=== PATIENT | male | born 1990 | race Caucasian/White ===

== ENCOUNTER 2024-09-27 16:14 | Emergency (ER) | payer MEDICAID, SELFPAY ==
[2024-09-27 16:18] VITALS: BMI 52.2
[2024-09-27 16:59] VITALS: BP 150/86; PULSE 99; RESP 20; TEMP 37; O2SAT 99
--- NOTE | 2024-09-27 17:06 | EKG_ITS ---
[facility] Test Date: 2024-09-27 Pat Name: BYRON ANDRE Department: Room: - Gender: Male Sports Manager: : 1990 Requested By: Gildardo Navas (NELY) Order Number: [id number] Reading MD: Gildardo Navas (MONONITROTOLUENE OPERATOR) Measurements Intervals [place] Rate: 95 P: 47 [place]: 132 QRS: 39 QRSD: 93 T: 23 QT: 352 QTc: 443 Interpretive Statements SINUS RHYTHM WITH MARKED SINUS ARRHYTHMIA No previous ECG available for comparison /store/S0/[id number]
--- NOTE | 2024-09-27 17:06 | XR_ITS ---
Examination: AP chest single view TECHNIQUE: AP portable chest single view Examination type: September 27, 2024 1718 hours Comparison August 27, 2019 INDICATIONS: Chest pain 1 week with difficulty breathing FINDINGS: Mild prominence of ventricle Mild vascular congestion. No lobar pneumonia or pulmonary edema IMPRESSION: Mild vascular congestion
--- NOTE | 2024-09-27 17:06 | PD.EDRME ---
Rapid Medical Screening Exam RME Arrival date/time: 09/27/24 16:14 34-year-old male presents to the emergency department today for complaints of shortness of breath and generalized back pain and fatigue Chief Complaint: Shortness of Breath/Dyspnea Time Seen by Provider: 09/27/24 20:28 Vital signs: Vital Signs Temperature 98.6 F 09/27/24 16:59 Pulse Rate 99 09/27/24 16:59 Respiratory Rate 20 09/27/24 16:59 Blood Pressure 150/86 H 09/27/24 16:59 Pulse Oximetry (%) 99 09/27/24 16:59 Oxygen Delivery Method Room Air 09/27/24 16:59
[2024-09-27 17:50] LABS: Basophils # (Auto) 0.1 Thou/mm3 (0.0-0.2); Basophils % (Auto) 1 % (0-2.5); Eosinophils # (Auto) 0.3 Thou/mm3 (0.0-0.5); Eosinophils % (Auto) 4 % (0-10); Hematocrit 44.8 % (41.0-53.0); Hemoglobin 14.7 g/dL (13.5-16.0); Immature Granulocytes % (Auto) 0 % (0-0); Immature Granulocytes Auto 0.01 Thou/mm3 (0.00-0.00); Lymphocytes # (Auto) 2.2 Thou/mm3 (1.0-4.8); Lymphocytes % (Auto) 31 % (10-50); Mean Corpuscular HGB Conc 32.8 g/dl (31.0-37.0); Mean Corpuscular Hemoglobin 28.7 pg (25.0-35.0); Mean Corpuscular Volume 88 fL (80-100); Monocytes # (Auto) 0.6 Thou/mm3 (0.0-0.8); Monocytes % (Auto) 8 % (0-12); Neutrophils % (Auto) 56 % (37-80); Nucleated Red Blood Cell % 0 /100 WBC (0); Platelet Count 259 Thou/mm3 (140-440); RDW Standard Deviation 42.9 fL (35.1-43.9); Red Blood Count 5.12 Miln/mm3 (4.50-5.90); White Blood Count 7.1 Thou/mm3 (3.8-10.6)
[2024-09-27 17:55] LABS: Collection Type, Urine Clean Catch
[2024-09-27 18:01] LABS: Partial Thromboplastin Time 24.3 Seconds (22.0-36.0); Prothrombin Time 10.5 Seconds (9.0-12.2)
[2024-09-27 18:01] LABS: Bilirubin,Urine Negative (Negative); Blood,Urine Negative (Negative); Clarity,Urine Clear (Clear/Hazy); Color,Urine Yellow (Lt Yel-Yel); Glucose, Urine Negative (Negative); Ketones,Urine Negative (Negative); Leukocyte Esterase,Urine Negative (Negative); Nitrite,Urine Negative (Negative); Protein,Urine Trace (Neg - Trace); RBC,Urine 2 /hpf (0-3); Specific Gravity,Urine 1.028 (1.001-1.035); Squamous Epithelial Cell,Urine 1 /hpf (0-5); Urobilinogen,Urine Negative mg/dL (0.0-1.0); WBC,Urine 3 /hpf (0-5)
[2024-09-27 18:25] LABS: B-Type Natriuretic Peptide < 20 pg/mL (0-100)
[2024-09-27 18:29] LABS: Alanine Aminotransferase 56 U/L (10-49); Albumin, Serum 4.5 gm/dL (3.5-5.0); Albumin/Globulin Ratio 1.6 (1.2-2.2); Alkaline Phosphatase 78 U/L (46-116); Anion Gap 6 (7-16); Aspartate Amino Transferase 54 U/L (0-34); BUN/Creatinine Ratio 10 Ratio (12-20); Bilirubin,Total 0.5 mg/dL (0.3-1.2); Blood Urea Nitrogen 9 mg/dL (9-23); Calcium 9.3 mg/dL (8.3-10.6); Calcium (Corrected) 9.3 mg/dL (8.5-10.1); Carbon Dioxide 25.9 mMol/L (20.0-31.0); Chloride 110 mMol/L (98-107); Creatinine (Component) 0.9 mg/dL (0.6-1.3); Estimated Creatinine Clearance 188.7 mL/min (>60); Free T4 (Free Thyroxine) 1.06 ng/dL (0.89-1.76); Globulin 2.8 gm/dL (2.3-3.5); Glucose 96 mg/dL (74-106); Osmolality,Calculated 281 (275-295); Potassium 4.1 mMol/L (3.4-5.1); Sodium 142 mMol/L (136-145); Thyroid Stimulating Hormone 1.81 uIU/mL (0.55-4.78); Total Protein 7.3 gm/dL (5.7-8.2); Troponin I < 0.002 ng/mL (0.0-0.045); eGFR > 60 See Note
--- NOTE | 2024-09-27 20:46 | XR_ITS ---
Examination: Lumbar spine 3 views TECHNIQUE: AP lateral, lower lumbar spine 3 views INDICATIONS: Lower back pain beginning one week ago. FINDINGS: Satisfactory alignment lumbar vertebral bodies Normal lumbar fracture Mild lumbar disc narrowing No spondylolisthesis IMPRESSION: No lumbar fracture Mild diffuse lumbar disc narrowing
--- NOTE | 2024-09-27 20:46 | XR_ITS ---
Examination: Cervical spine 3 views TECHNIQUE: AP lateral, and AP odontoid cervical spine 3 views Exam date and time: September 27,, 2024, 2101 hours INDICATIONS: Neck pain 1 week numbness in the hands FINDINGS: Adequate alignment cervical vertebral bodies No cervical fracture. Intact odontoid IMPRESSION: No cervical fracture or significant arthritic change If radicular symptoms persist, consider MRI cervical spine without contrast followed
[2024-09-27] MEDS: KETOROLAC INJ 60 MG/2 ML VIAL 30 MG IM (21:26)
--- NOTE | 2024-09-27 21:39 | PD.EDSOB ---
ED SOB =RME/HPI General Chief Complaint: Shortness of Breath/Dyspnea Stated Complaint: BACK PAIN, SOB, R HAND NUMBNESS X2 DAYS Time Seen by Provider: 09/27/24 20:28 Arrival date/time: 09/27/24 16:14 Mode of arrival: ambulatory Limitations: no limitations RME / HPI RME / HPI Narrative: 09/27/24 16:14 34-year-old male presents to the emergency department today for complaints of shortness of breath and generalized back pain and fatigue MD Complaint: shortness of breath and cough Severity: moderate Consistency/Duration: constant Associated symptoms: other (back pain) Treatment prior to arrival: oxygen Related Data Home oxygen amount: 2 liters Previous Rx's ?Medication ?Instructions ?Recorded ondansetron HCl 4 mg tablet 4 mg PO QID PRN nausea and 12/15/19 (Zofran) vomiting #10 tabs naproxen sodium 550 mg tablet 550 mg PO Q12H PRN pain #30 tabs 09/27/24 Allergies Allergy/AdvReac Type Severity Reaction Status Date / Time No Known Allergies Allergy Verified 08/09/19 21:44 Review of Systems Review of Systems Systems Reviewed: All systems reviewed, normal except as documented Cardiovascular Cardiovascular: Reports system reviewed and no additional complaints, except as documented and Reports dyspnea on exertion Respiratory Respiratory: Reports dyspnea on exertion Musculoskeletal Musculoskeletal: Reports system reviewed and no additional complaints, except as documented, Reports arthralgias and Reports myalgias ED Exam General Limitations: Present no limitations General appearance: Present alert and in no apparent distress Head Head exam: Present atraumatic and normocephalic Eye Eye exam: Present normal appearance and EOMI ENT ENT exam: Present normal exam, normal oropharynx and mucous membranes moist Neck Neck exam: Present normal inspection and full ROM Chest Chest inspection: Present normal inspection Respiratory Respiratory exam: Present normal lung sounds bilaterally and respiratory distress Cardiovascular Cardiovascular exam: Present regular rate and normal rhythm Abdominal Exam Abdominal exam: Present soft Extremities Exam Extremities exam: Present normal inspection and full ROM Back Exam Back exam: Present normal inspection and full ROM Neurological Exam Neurological exam: Present alert and oriented X3 Psychiatric Psychiatric exam: Present normal affect and normal mood Skin Skin exam: Present warm, dry, intact and normal color Course Course Course Narrative: Discharge parents. I reviewed all labs with the patient including the x-rays. Patient had 30 mg prescription. Quality Measures none Orders Category Date Time Status EKG (ED ONLY) *Do not use* NOW Care 09/27/24 17:06 Completed EKG (ED Only) Stat Exams 09/27/24 17:06 Draft XR cervical spine 2-3V Stat Exams 09/27/24 20:46 Completed XR chest 2V Stat Exams 09/27/24 17:06 Completed XR lumbar spine 2-3V Stat Exams 09/27/24 20:46 Completed B-Type Natriuretic Peptide Stat Lab 09/27/24 17:10 Completed CBC Stat Lab 09/27/24 17:10 Completed Comprehensive Metabolic Panel Stat Lab 09/27/24 17:10 Completed Free T4 (Free Thyroxine) Stat Lab 09/27/24 17:10 Completed Magnesium Stat Lab 09/27/24 17:10 Completed Partial Thromboplastin Time Stat Lab 09/27/24 17:10 Completed Prothrombin Time with INR Stat Lab 09/27/24 17:10 Completed TSH [Thyroid Stimulating Hormone] Stat Lab 09/27/24 17:10 Completed Troponin I Stat Lab 09/27/24 17:10 Completed Urinalysis Stat Lab 09/27/24 17:36 Completed Ketorolac Inj [Toradol Inj] Med 09/27/24 20:46 Discontinued 30 mg IM X1 ONE Vital Signs Vital signs: Vital Signs Temperature 98.6 F 09/27/24 16:59 Pulse Rate 99 09/27/24 16:59 Respiratory Rate 20 09/27/24 16:59 Blood Pressure 150/86 H 09/27/24 16:59 Pulse Oximetry (%) 99 09/27/24 16:59 Oxygen Delivery Method Room Air 09/27/24 16:59 Pulse ox room air is 99%. Shortness of Breath / Dyspnea MDM Narrative MDM Narrative:: Patient will be discharged home and he is to continue with the appointment he has with his primary care physician for pain management as well as to review his shortness of breath. Patient will be discharged from distress. Patient data External records reviewed:: Other (specify) Clinical information provided by:: patient Social determinants that could affect healthcare access:: none Patient has the following chronic illnesses:: na How is presenting disease/condition affected by chronic disease/condition?: exacerbated by (Morbidly obese) Evaluation data The following diagnostics were reviewed and interpreted by me:: lab results Lab and/or radiology exams considered but not ordered:: I reviewed the lab results as well as the x-rays to the patient. Interpretation Summary: Arthritic changes consistant with low back pain. Morbidly obese more then likely contributes to patient's SOB. Medications / Prescriptions Medications or Prescriptions considered but not ordered:: na Medication administrations:: Medication Administration History Discontinued Medications Ketorolac Tromethamine (Ketorolac Inj 60 Mg/2 Ml Vial) 30 mg IM X1 ONE Stop: 09/27/24 20:47 Last Admin: 09/27/24 21:26 Dose: 30 mg Documented By: ASHVIN For pain management Consultations Consultation(s) initiated? (list below): No Diagnosis Shortness of Breath Differential Diagnosis: acute exacerbation of chronic obstructive airways disease, congestive heart failure, community acquired pneumonia and asthma with exacerbation Most likely diagnosis given after review of the tests above:: Back pain, SOB Admission Indicated Admission indicated?: not indicated Admission Request Was there a request for admission?: No Disposition Plan Disposition Plan: Discharge Discharge Attestation Discharge Attestation: The patient and all family members were given an opportunity to ask questions and understood the discharge instructions. Discharge instructions specifically effects, indications for sooner follow up or return to the emergency department, and the expected course of current diagnosis. Patient condition: Stable Discharge Plan Plan Patient Disposition: HOME (Self Care) Disposition Comment: Discharged in no apparent distress Patient condition on transfer: Stable Prescriptions/Referrals Prescriptions/Med Rec: New naproxen sodium 550 mg tablet 550 mg PO Q12H PRN (Reason: pain) Qty: 30 0RF No Action ondansetron HCl [Zofran] 4 mg tablet 4 mg PO QID PRN (Reason: nausea and vomiting) Qty: 10 0RF Referrals: Arminda Ogden FNP [Primary Care Provider] - In 1 week Problem List Clinical Impression: Breath shortness, Back pain Impression comment: Patient is to primary care physician for follow-up visit and he is to do this medical today's visit. Patient/Caregiver Discharge Instructions Education Materials: Shortness of Breath Coping, ED Back and Neck Pain, General Print Language: Lebanese VIRAJ/BELLA Supervising Physician VIRAJ/BELLA Supervising Physician: BHASKAR
== END 2024-09-27 21:54 | disposition home or self-care (01) ==
PROVIDERS: Nurse Practitioner Primary Care; Emergency Provider Emergency Medicine; PCP Registered Nurse Community Health
DX: R06.02 Shortness of breath (principal); M54.2 Cervicalgia; M54.50 Low back pain, unspecified; R07.9 Chest pain, unspecified; R20.0 Anesthesia of skin; I49.8 Other specified cardiac arrhythmias
CPT/HCPCS: 36415; 71046; 72040; 72100; 80053; 81001; 83735; 83880; 84439; 84443; 84484; 85025; 85610; 85730; 93005; 96372; 99283; J1885

== ENCOUNTER 2024-10-19 22:06 | Emergency (ER) | payer MEDICAID, SELFPAY ==
[2024-10-19 22:07] VITALS: BMI 52.9
[2024-10-19 22:47] VITALS: BP 130/87; PULSE 100; RESP 22; TEMP 36.9; O2SAT 96
--- NOTE | 2024-10-19 22:52 | EKG_ITS ---
[facility] Test Date: 2024-10-19 Pat Name: BYRON ANDRE Department: Room: - Gender: Male Product Advisor: : 1990 Requested By: Tsering Andrea Order Number: [id number] Reading MD: Tsering Andrea Measurements Intervals [place] Rate: 104 P: 55 [place]: 125 QRS: 16 QRSD: 94 T: 36 QT: 324 QTc: 427 Interpretive Statements SINUS TACHYCARDIA ABNORMAL RHYTHM ECG Compared to ECG 09/27/2024 17:09:59 Sinus rhythm no longer present Sinus arrhythmia no longer present /store/S0/[id number]/ecg/[id number].pdf
--- NOTE | 2024-10-19 22:52 | XR_ITS ---
Examination: PA chest single view TECHNIQUE: Upright PA chest single view Exam date and time: October 19, 2024 1119 hours Comparison September 27, 2024 INDICATIONS: Chest pain shortness of breath beginning 5 days ago. FINDINGS: Normal heart size Lungs are clear. Osseous structures are intact IMPRESSION: No active disease
--- NOTE | 2024-10-19 22:53 | PD.EDRME ---
Rapid Medical Screening Exam RME Arrival date/time: 10/19/24 22:06 This is a case of 34 year old male came in with chest pain and sob for 5 days Chief Complaint: Shortness of Breath/Dyspnea Time Seen by Provider: 10/19/24 22:52 Vital signs: Vital Signs Temperature 98.5 F 10/19/24 22:47 Pulse Rate 100 10/19/24 22:47 Respiratory Rate 22 H 10/19/24 22:47 Blood Pressure 130/87 H 10/19/24 22:47 Pulse Oximetry (%) 96 10/19/24 22:47 Oxygen Delivery Method Room Air 10/19/24 22:47
[2024-10-19 23:33] LABS: Basophils # (Auto) 0.1 Thou/mm3 (0.0-0.2); Basophils % (Auto) 1 % (0-2.5); Eosinophils # (Auto) 0.3 Thou/mm3 (0.0-0.5); Eosinophils % (Auto) 4 % (0-10); Hematocrit 43.5 % (41.0-53.0); Hemoglobin 14.9 g/dL (13.5-16.0); Immature Granulocytes % (Auto) 0 % (0-0); Immature Granulocytes Auto 0.01 Thou/mm3 (0.00-0.00); Lymphocytes # (Auto) 2.7 Thou/mm3 (1.0-4.8); Lymphocytes % (Auto) 32 % (10-50); Mean Corpuscular HGB Conc 34.3 g/dl (31.0-37.0); Mean Corpuscular Hemoglobin 28.8 pg (25.0-35.0); Mean Corpuscular Volume 84 fL (80-100); Monocytes # (Auto) 0.6 Thou/mm3 (0.0-0.8); Monocytes % (Auto) 7 % (0-12); Neutrophils # (Auto) 4.8 Thou/mm3 (1.8-7.7); Neutrophils % (Auto) 56 % (37-80); Nucleated Red Blood Cell % 0 /100 WBC (0); Platelet Count 265 Thou/mm3 (140-440); RDW Standard Deviation 39.8 fL (35.1-43.9); Red Blood Count 5.17 Miln/mm3 (4.50-5.90); White Blood Count 8.5 Thou/mm3 (3.8-10.6)
[2024-10-19 23:47] LABS: B-Type Natriuretic Peptide < 20 pg/mL (0-100)
[2024-10-19 23:50] LABS: Alanine Aminotransferase 40 U/L (10-49); Albumin, Serum 4.6 gm/dL (3.5-5.0); Albumin/Globulin Ratio 1.5 (1.2-2.2); Alkaline Phosphatase 78 U/L (46-116); Anion Gap 11 (7-16); Aspartate Amino Transferase 30 U/L (0-34); BUN/Creatinine Ratio 10 Ratio (12-20); Bilirubin,Total 0.7 mg/dL (0.3-1.2); Blood Urea Nitrogen 11 mg/dL (9-23); Calcium 9.2 mg/dL (8.3-10.6); Calcium (Corrected) 9.2 mg/dL (8.5-10.1); Carbon Dioxide 24.6 mMol/L (20.0-31.0); Chloride 104 mMol/L (98-107); Creatinine (Component) 1.1 mg/dL (0.6-1.3); Estimated Creatinine Clearance 155.6 mL/min (>60); Globulin 3.1 gm/dL (2.3-3.5); Glucose 109 mg/dL (74-106); Osmolality,Calculated 279 (275-295); Sodium 140 mMol/L (136-145); Total Protein 7.7 gm/dL (5.7-8.2); Troponin I < 0.002 ng/mL (0.0-0.045); eGFR > 60 See Note
--- NOTE | 2024-10-20 00:03 | EDNOTE_ITS ---
ED SOB =RME/HPI General Chief Complaint: Shortness of Breath/Dyspnea Stated Complaint: TROUBLE BREATHING, DIZZY, [place], BACK PAIN Time Seen by Provider: 10/19/24 22:52 Arrival date/time: 10/19/24 22:06 Limitations: no limitations RME / HPI RME / HPI Narrative: 10/19/24 22:06 This is a case of 34 year old male came in with chest pain and sob for 5 days ------ Dr. E[facility] Main ED Evaluation: 34yo male presents to the ED for a chief complaint of shortness of breath x 5 days. Patient states his shortness of breath started when he was laying down, reporting it's progressively gotten wor se since. Patient states he's had intermittent sharp chest pain when he takes a deep breath and was concerned, so he came in for evaluation. Patient reports associated frontal headache and lower back pain. Patient denies any cough, runny nose, fever, chills or any other associated symptoms. Patient denies any sick contacts at home. He is a former smoker, reporting he quit 2-3 months ago. -PMHx: none -PSH: none -Social Hx: Former smoker -Current Medications: reviewed. -PCP: [facility] Related Data Previous Rx's ?Medication ?Instructions ?Recorded ondansetron HCl 4 mg tablet 4 mg PO QID PRN nausea and 12/15/19 (Zofran) vomiting #10 tabs naproxen sodium 550 mg tablet 550 mg PO Q12H PRN pain #30 tabs 09/27/24 albuterol sulfate 90 mcg/actuation 2 puff inhalation Q 6H PRN cough 5 10/20/24 aerosol inhaler days #8.5 grams Allergies Allergy/AdvReac Type Severity Reaction Status Date / Time No Known Allergies Allergy Verified 10/19/24 22:07 Review of Systems Review of Systems Systems Reviewed: All systems reviewed, normal except as documented Past Medical History Past Medical History CARDIAC: Negative Congestive Heart Failure RESPIRATORY: Negative Chronic Obstructive Pulmonary Disease (COPD) GENITOURINARY: Negative Renal Disease ENDOCRINE: Negative Diabetes Mellitus Type 1 or Diabetes Mellitus Type 2 Social History SMOKING STATUS: Never smoker ED Exam General Limitations: Present no limitations General appearance: Present alert, in no apparent distress and other (obese, appears clinically dehydrated) Head Head exam: Present atraumatic Eye Eye exam: Present normal appearance, PERRL and EOMI ENT ENT exam: Present normal exam, normal oropharynx and mucous membranes dry Neck Neck exam: Present normal inspection, full ROM and trachea midline Chest Chest inspection: Present normal inspection and symmetric chest wall rise Respiratory Respiratory exam: Present wheezes (mild expiratory wheezes bilaterally) Cardiovascular Cardiovascular exam: Present regular rate, normal rhythm and normal heart sounds Abdominal Exam Abdominal exam: Present soft and other (large); Absent tenderness or guarding Extremities Exam Extremities exam: Present normal inspection and full ROM; Absent pedal edema Back Exam Back exam: Present normal inspection and full ROM Neurological Exam Neurological exam: Present alert, oriented X3 and CN II-XII intact Psychiatric Psychiatric exam: Present normal affect and normal mood Skin Skin exam: Present warm, dry, intact and normal color Course Course Course Narrative: CXR is ordered for determining the etiology of shortness of breath. Quality Measures none Orders Category Date Time Status CT Screening NOW Care 10/20/24 00:13 Active EKG (ED ONLY) *Do not use* NOW Care 10/19/24 22:53 Completed IV [Insert IV] NOW Care 10/20/24 01:[address] angio chest Stat Exams 10/20/24 00:13 Taken EKG (ED Only) Stat Exams 10/19/24 22:52 Draft XR chest 1V portable Stat Exams 10/19/24 22:52 Completed BNP [B-Type Natriuretic Peptide] Stat Lab 10/19/24 23:10 Completed CBC Stat Lab 10/19/24 23:10 Completed CMP [Comprehensive Metabolic Panel] Stat Lab 10/19/24 23:10 Completed PT [Prothrombin Time with INR] Stat Lab 10/20/24 00:00 Completed PTT [Partial Thromboplastin Time] Stat Lab 10/20/24 00:00 Completed Troponin I Stat Lab 10/19/24 23:10 Completed Troponin I Stat Lab 10/20/24 02:14 Completed Ketorolac Inj [Toradol Inj] Med 10/20/24 05:07 Discontinued 30 mg IM X1 ONE Vital Signs Vital signs: Vital Signs Temperature 98.5 F 10/19/24 22:47 Pulse Rate 100 10/19/24 22:47 Respiratory Rate 22 H 10/19/24 22:47 Blood Pressure 130/87 H 10/19/24 22:47 Pulse Oximetry (%) 96 10/19/24 22:47 Oxygen Delivery Method Room Air 10/19/24 22:47 Shortness of Breath / Dyspnea MDM Narrative MDM Narrative:: Scribe Attestation: 10/20/24 - Miley Talbert am scribing for and in the presence of Dr. Easley. CTA ordered to r/o PE. 0505: CTA is unremarkable for any acute findings. Patient is resting comfortably at this time and is not in any acute distress. Patient is stable to be discharged home. Patient data External records reviewed:: [facility] previous records (Per chart review, patient was seen here on 09/27/24 for back pain.) Clinical information provided by:: patient Social determinants that could affect healthcare access:: substance use (former smoker) Patient has the following chronic illnesses:: none How is presenting disease/condition affected by chronic disease/condition?: no chronic disease Evaluation data The following diagnostics were reviewed and interpreted by me:: lab results, radiology exam(s) and EKG tracing(s) Lab and/or radiology exams considered but not ordered:: none Interpretation Summary: CBC is normal, CMP is normal, Troponin is normal, BNP is normal, according to my interpretation. EKG done at 2309, sinus tachycardia, rate of 104, T wave inversion in lead III, QTc: 427, AR interval: 125, no STEMI, according to my interpretation. [facility] Report Signed Patient: BYRON ANDRE. Record#: [id number] Birthdate: 1990 Age/Sex: 34 / M Location: [facility] Attending Dr: Ordering Physician: Tsering Jennings Date of Service: 10/19/24 Procedure(s): XR chest 1V portable Accession Number(s): [id number] cc: Arminda Ogden; Jony Zhou MD; Tsering Jennings~ Examination: PA chest single view TECHNIQUE: Upright PA chest single view Exam date and time: October 19, 2024 1119 hours Comparison September 27, 2024 INDICATIONS: Chest pain shortness of breath beginning 5 days ago. FINDINGS: Normal heart size Lungs are clear. Osseous structures are intact IMPRESSION: No active disease Dictated By: Jony Zhou MD Signed By: <Electronically signed by Jony Zhou MD in OV> 10/19/24 2343 [place] Preliminary Report Draft Patient: BYRON ANDRE. Record#: [id number] Birthdate: 1990 Age/Sex: 34 / M Location: [facility] Attending Dr: Ordering Physician: Date of Service: Procedure(s): Accession Number(s): cc: ~ CT angiogram of the chest with intravenous contrast (axial sections with sagittal and coronal reformats) October 20, 2024 0228 hours Clinical History: 34-year-old chest pain and shortness of breath Technique:Helical axial sections with sagittal and coronal reformats of the chest were obtained with intravenous contrast. Iterative reconstruction technique was employed to reduce patient radiation exposure. 3D/MIP di nstructed images were also provided. Comparison: None. Findings: There is no filling defect within the pulmonary artery divisions to suggest pulmonary thromboembolism. The mediastinum demonstrates no evidence of mass or lymphadenopathy. The thoracic aorta is unremarkable. There is no pericardial effusion. The lungs are clear. No evidence of pleural effusion or pneumothorax. Degenerative changes of the imaged portions of the spine. No acute fractures. The visualized upper abdominal viscera are unremarkable. Impression: No CT evidence of pulmonary thromboembolism or other acute intrathoracic pathology. Report Electronically Signed By: Arcadio Stover 10/20/2024 4:42:38 AM [EST] Medications / Prescriptions Medications or Prescriptions considered but not ordered:: none Medication administrations:: Medication Administration History Discontinued Medications Ketorolac Tromethamine (Ketorolac Inj 60 Mg/2 Ml Vial) 30 mg IM X1 ONE Stop: 10/20/24 05:08 see above, if any Consultations Consultation(s) initiated? (list below): No Diagnosis Shortness of Breath Differential Diagnosis: community acquired pneumonia, pulmonary embolism and other (dehydration, electrolyte abnormality, NSTEMI) Most likely diagnosis given after review of the tests above:: atypical chest pain Admission Indicated Admission indicated?: not indicated Admission Request Was there a request for admission?: No Disposition Plan Disposition Plan: Discharge Discharge Attestation Discharge Attestation: The patient and all family members were given an opportunity to ask questions and understood the discharge instructions. Discharge instructions specifically effects, indications for sooner follow up or return to the emergency department, and the expected course of current diagnosis. Patient condition: Stable Discharge Plan Plan Patient Disposition: HOME (Self Care) Patient condition on transfer: Stable Prescriptions/Referrals Prescriptions/Med Rec: New albuterol sulfate 90 mcg/actuation HFA aerosol inhaler 2 puff inhalation Q6H PRN (Reason: cough) 5 Days Qty: 8.5 0RF Rx Instructions: administer with spacer No Action ondansetron HCl [Zofran] 4 mg tablet 4 mg PO QID PRN (Reason: nausea and vomiting) Qty: 10 0RF naproxen sodium 550 mg tablet 550 mg PO Q12H PRN (Reason: pain) Qty: 30 0RF Referrals: Arminda Ogden FNP [Primary Care Provider] - In 1 week Problem List Clinical Impression: Atypical chest pain Patient/Caregiver Discharge Instructions Education Materials: Communicating About Pain, ED Chest Pain, Uncertain Cause Additional Instructions: Follow-up with your primary care provider in the next 2-3 days for a recheck. Return to the emergency department for any worsening or concerning symptoms, or as needed. Print Language: Guatemalan Stand Alone Forms: Suzette Award Info., Patient Portal Info Letter
--- NOTE | 2024-10-20 00:13 | XR_ITS ---
Examination: CTA chest with intravenous contrast 2-D reconstructions 3-D reconstructions, vascular Date and time of exam: October 20, 2024 0028 hours INDICATIONS: Chest pain and shortness of breath and dizziness back pain today, clinical diagnosis pulmonary emboli CTDI: vol (mGy) 15.5 DLP: (mGycm) 622 Technique: Multiple axial sections of the thorax have been obtained. 3 mm slice thickness, from below the hemidiaphragms to above the apices of the lungs. Mediastinal and lung density settings have been obtained. 2-D sagittal and coronal reconstructions. 3-D angiographic renderings, 3-D volume renderings, 3D post processing, vascular maximum intensity projections obtained. Contrast administered is 100 cc Isovue 370 intravenous. Low dose protocols were performed. One or more of the following dose reduction techniques were used; automated exposure control, adjustment of the mA and/or KV according to patient size, use of iterative reconstruction technique. Findings: No thoracic aortic aneurysm dilatation or dissection Main pulmonary artery segment 35 mm No pulmonary artery filling defects No paratracheal tracheobronchial or bronchopulmonary adenopathy No pneumonia or pulmonary edema or pleural disease The liver is irregular in contour Contracted gallbladder No pancreatic mass Mild thoracic spondylosis IMPRESSION: Negative for pulmonary artery emboli No pneumonia pulmonary edema or pleural disease
[2024-10-20 00:22] VITALS: BP 137/91; PULSE 102; RESP 20; TEMP 36.8; O2SAT 95
[2024-10-20 00:37] LABS: Partial Thromboplastin Time 24.2 Seconds (22.0-36.0); Prothrombin Time 10.7 Seconds (9.0-12.2)
[2024-10-20 02:52] LABS: Troponin I < 0.002 ng/mL (0.0-0.045)
[2024-10-20 03:54] VITALS: BP 126/84; PULSE 95; RESP 18; TEMP 36.8; O2SAT 96
--- NOTE | 2024-10-20 04:43 | PRELIM_ITS ---
CT angiogram of the chest with intravenous contrast (axial sections with sagittal and coronal reformats) October 20, 2024 0228 hours Clinical History: 34-year-old chest pain and shortness of breath Technique:Helical axial sections with sagittal and coronal reformats of the chest were obtained with intravenous contrast. Iterative reconstruction technique was employed to reduce patient radiation exposure. 3D/MIP reconstructed images were also provided. Comparison: None. Findings: There is no filling defect within the pulmonary artery divisions to suggest pulmonary thromboembolism. The mediastinum demonstrates no evidence of mass or lymphadenopathy. The thoracic aorta is unremarkable. There is no pericardial effusion. The lungs are clear. No evidence of pleural effusion or pneumothorax. Degenerative changes of the imaged portions of the spine. No acute fractures. The visualized upper abdominal viscera are unremarkable. Impression: No CT evidence of pulmonary thromboembolism or other acute intrathoracic pathology. Report Electronically Signed By: Arcadio Stover 10/20/2024 4:42:38 AM [EST]
[2024-10-20 05:51] VITALS: BP 130/86; PULSE 93; RESP 20; TEMP 36.6; O2SAT 97
[2024-10-20] MEDS: KETOROLAC INJ 30 MG/ML VIAL IVP (06:12)
== END 2024-10-20 06:30 | disposition home or self-care (01) ==
PROVIDERS: Nurse Practitioner Family; Emergency Provider Emergency Medicine; PCP Registered Nurse Community Health
DX: R07.89 Other chest pain (principal); R06.02 Shortness of breath; M54.50 Low back pain, unspecified; R51.9 Headache, unspecified
CPT/HCPCS: 36415; 71045; 71275; 80053; 83880; 84484; 85025; 85610; 85730; 93005; 99285; A4649; J1885; Q9967

== ENCOUNTER 2025-01-19 18:03 | Emergency (ER) | payer MEDICAID, SELFPAY ==
--- NOTE | 2025-01-19 18:34 | EDNOTE_ITS ---
ED Medical Clearance RME/HPI General Chief complaint: Medical Clearance Stated complaint: CORRECTION CLEARANCE Time Seen by Provider: 01/19/25 18:45 Arrival date/time: 01/19/25 18:03 RME / HPI RME / HPI Narrative: See [facility] Related Information Previous Rx's ?Medication ?Instructions ?Recorded ondansetron HCl 4 mg tablet 4 mg PO QID PRN nausea and 12/15/19 (Zofran) vomiting #10 tabs naproxen sodium 550 mg tablet 550 mg PO Q12H PRN pain #30 tabs 09/27/24 Allergies Allergy/AdvReac Type Severity Reaction Status Date / Time No Known Allergies Allergy Verified 10/19/24 22:07 Review of Systems Review of Systems Systems Reviewed: All systems reviewed, normal except as documented Past Medical History Past Medical History RESPIRATORY: Positive Asthma and Sleep Apnea Social History ALCOHOL: Current ALCOHOL FREQUENCY: A Few Times a Month ALCOHOL LAST INTAKE: Unknown ED Exam Narrative Physical exam: Refer to [facility] Course Course Course Narrative: CXR is ordered for determining the etiology of shortness of breath. Quality Measures none Orders Category Date Time Status EKG (ED ONLY) *Do not use* NOW Care 01/19/25 18:43 Completed EKG (ED Only) Stat Exams 01/19/25 18:43 Draft BNP [B-Type Natriuretic Peptide] Stat Lab 01/19/25 18:55 Completed Bilirubin,Direct Stat Lab 01/19/25 18:55 Completed CBC Stat Lab 01/19/25 18:55 Completed CK [Creatine Kinase] Stat Lab 01/19/25 18:55 Completed CMP [Comprehensive Metabolic Panel] Stat Lab 01/19/25 18:55 Completed D-Dimer Stat Lab 01/19/25 18:55 Completed Magnesium Stat Lab 01/19/25 18:55 Completed TSH [Thyroid Stimulating Hormone] Stat Lab 01/19/25 18:55 Completed Troponin I Stat Lab 01/19/25 18:55 Completed Metoprolol Tartrate [Lopressor] Med 01/19/25 19:10 Discontinued 25 mg PO X1 ONE Metoprolol Tartrate [Lopressor] Med 01/19/25 18:44 Discontinued 50 mg PO X1 ONE Vital Signs Vital signs: Vital Signs Temperature 98.9 F 01/19/25 18:38 Pulse Rate 123 H 01/19/25 18:38 Respiratory Rate 18 01/19/25 18:38 Blood Pressure 135/87 H 01/19/25 18:38 Pulse Oximetry (%) 95 01/19/25 18:38 Oxygen Delivery Method Room Air 01/19/25 18:38 Medical Clearance MDM Narrative MDM Narrative:: Scribe Attestation: I, Priscila Gan, am scribing for and in the presence of Dr. Neely. Provider Notation: Although this document has been carefully reviewed, there may still be some phonetic and other typographical errors.? These errors are purely grammatical due to imperfections in the software program and should not be construed in any way to? compromise the substance of the patient's medical care during this visit. This section includes all my notes and documentations, including HPI, PE, and ED course. Rm Neely MD HPI: 34 y/o male with Hx of Asthma BIB PPD requesting medical clearance for long-term due to increased heart rate of 140. Patient reports no chest pain or shortness of breath. No palpitations. No other complaints. ROS: All negative except as documented in HPI. Physical Exam: General: Alert and oriented. No acute distress when remaining still. Eyes: Conjunctivae and lids clear. ENT: No nasal congestion. Neck: Supple. Heart: Sinus tachycardia noted. Lungs: No respiratory distress. Good air movement. No rhonchi, wheezing, rales. Abdomen: Soft and nontender. Skin: Warm and dry. Neuro: Alert and oriented X 3. I reviewed all diagnostic test results: My interpretation of the EKG is: Sinus tachycardia (126 bpm) with nonspecific ST-T changes. Rm Neely MD My interpretation of the chest x-ray is: NAD. Blood tests unremarkable, including negative Troponin/D-dimer/BNP. At this point, diagnoses include: Tachycardia of unclear etiology Treatment here included: Oral Lopressor 25 mg Significant movement noted. Based on my best medical judgment, made decision to medically clear the patient for long-term and no further evaluation or treatment indicated at this time. Patient understands and agrees to the discharge instructions customized and printed, see below. Discharge instructions from Dr. Neely: 1. After extensive evaluation, there is no life-threatening condition.? Such as heart attack or pulmonary embolism (blood clots in your lungs). 2. See a private doctor on 01/21/2025 or whenever you are released. To make sure there is no serious underlying heart condition, ask to help you get more tests for your heart that cannot be done here in the ER.? Such as Holter Monitor (c ardiac monitoring at home from a day to even a month), heart stress test (on treadmill or with medication), echocardiogram (imaging of your heart structures), heart catherization (checking for blockages in your heart arteries), and a referral to see a Butter Printer. 3. Seek immediate medical care with worsening or with any concerns.? Rm Neely MD Patient data External records reviewed:: [facility] previous records (Reviewed prior ED records from 10/20/24. Patient was seen for Atypical chest pain.) Clinical information provided by:: patient and law enforcement Social determinants that could affect healthcare access:: alcohol use Patient has the following chronic illnesses:: Asthma, Sleep Apnea How is presenting disease/condition affected by chronic disease/condition?: exacerbated by Evaluation data The following diagnostics were reviewed and interpreted by me:: lab results, radiology exam(s) and EKG tracing(s) (My interpretation of the EKG is: Sinus tachycardia (126 bpm) with nonspecific ST-T changes. Rm Neely MD) Lab and/or radiology exams considered but not ordered:: None Interpretation Summary: I reviewed all diagnostic test results: My interpretation of the chest x-ray is: NAD. Blood tests unremarkable, including negative Troponin/D-dimer/BNP. Medications / Prescriptions Medications or Prescriptions considered but not ordered:: None Medication administrations:: Medication Administration History Discontinued Medications Metoprolol Tartrate (Metoprolol Tartrate 25 Mg Tablet) 50 mg PO X1 ONE Stop: 01/19/25 18:45 Last Admin: 01/19/25 19:14 Dose: Not Given Documented By: SE Non-Admin Reason: Cancelled by Provider Metoprolol Tartrate (Metoprolol Tartrate 25 Mg Tablet) 25 mg PO X1 ONE Stop: 01/19/25 19:11 Last Admin: 01/19/25 19:17 Dose: 25 mg Documented By: Lopressor 25 mg Consultations Consultation(s) initiated? (list below): No Diagnosis Medical Clearance Differential Diagnosis: other (Hypertensive urgency vs emergency, sinus tachycardia, supraventricular tachycardia, ventricular tachycardia, PR, PE, Psychogenic) Most likely diagnosis given after review of the tests above:: Tachycardia with unclear etiology Admission Indicated Admission indicated?: not indicated Explain why admission is indicated or not indicated:: With significant improvement and no condition needing emergent intervention, there was no indication for admission. Admission Request Was there a request for admission?: No Disposition Plan Disposition Plan: other (specify) (Discharge to [facility]) Discharge Plan Plan Patient Disposition: Senior Living/Court/Law Prescriptions/Referrals Prescriptions/Med Rec: No Action ondansetron HCl [Zofran] 4 mg tablet 4 mg PO QID PRN (Reason: nausea and vomiting) Qty: 10 0RF naproxen sodium 550 mg tablet 550 mg PO Q12H PRN (Reason: pain) Qty: 30 0RF Referrals: No Primary/Family,Physician [Primary Care Provider] - In 1 week Problem List Clinical Impression: Medical clearance for incarceration, Tachycardia Patient/Caregiver Discharge Instructions Discharge Activity: activity as tolerated Education Materials: ED About Arrhythmias Additional Instructions: Discharge instructions from Dr. Neely: 1. After extensive evaluation, there is no life-threatening condition.? Such as heart attack or pulmonary embolism (blood clots in your lungs). 2. See a private doctor on 01/21/2025 or whenever you are released. To make sure there is no serious underlying heart condition, ask to help you get more tests for your heart that cannot be done here in the ER.? Such as Holter Monitor (cardiac monitoring at home from a day to even a month), heart stress test (on treadmill or with medication), echocardiogram (imaging of your heart structures), heart catherization (checking for blockages in your heart arteries), and a referral to see a Butter Printer. 3. Seek immediate medical care with worsening or with any concerns.?? Print Language: Somali
[2025-01-19 18:38] VITALS: BP 135/87; PULSE 123; RESP 18; TEMP 37.2; O2SAT 95; BMI 54.6
--- NOTE | 2025-01-19 18:43 | EKG_ITS ---
[facility] Test Date: 2025-01-19 Pat Name: BYRON ANDRE Department: Room: - Gender: Male Head Of It: : 1990 Requested By: Rm Briceño Order Number: [id number] Reading MD: Rm Briceño Measurements Intervals [place] Rate: 126 P: 47 TN: 126 QRS: -5 QRSD: 92 T: 44 QT: 300 QTc: 435 Interpretive Statements SINUS TACHYCARDIA ABNORMAL RHYTHM ECG Compared to ECG 10/19/2024 23:09:00 No significant changes /[id number]/[id number].pdf
[2025-01-19 19:01] LABS: Basophils # (Auto) 0.1 Thou/mm3 (0.0-0.2); Basophils % (Auto) 1 % (0-2.5); Eosinophils # (Auto) 0.2 Thou/mm3 (0.0-0.5); Eosinophils % (Auto) 3 % (0-10); Hematocrit 45.6 % (41.0-53.0); Hemoglobin 15.2 g/dL (13.5-16.0); Immature Granulocytes Auto 0.03 Thou/mm3 (0.00-0.00); Lymphocytes # (Auto) 2.1 Thou/mm3 (1.0-4.8); Lymphocytes % (Auto) 28 % (10-50); Mean Corpuscular HGB Conc 33.3 g/dl (31.0-37.0); Mean Corpuscular Hemoglobin 29.9 pg (25.0-35.0); Mean Corpuscular Volume 90 fL (80-100); Monocytes # (Auto) 0.4 Thou/mm3 (0.0-0.8); Monocytes % (Auto) 6 % (0-12); Neutrophils # (Auto) 4.6 Thou/mm3 (1.8-7.7); Neutrophils % (Auto) 62 % (37-80); Nucleated Red Blood Cell # 0.00 Thou/mm3 (0.00-0.00); Nucleated Red Blood Cell % 0 /100 WBC (0); Platelet Count 272 Thou/mm3 (140-440); RDW Standard Deviation 43.3 fL (35.1-43.9); Red Blood Count 5.09 Miln/mm3 (4.50-5.90); White Blood Count 7.4 Thou/mm3 (3.8-10.6)
[2025-01-19 19:08] VITALS: BP 115/67; PULSE 118; RESP 18; TEMP 36.9; O2SAT 93
[2025-01-19 19:17] VITALS: BP 115/67; PULSE 118
[2025-01-19] MEDS: METOPROLOL TARTRATE 25 MG TABLET PO (19:17)
[2025-01-19 19:24] LABS: B-Type Natriuretic Peptide < 20 pg/mL (0-100)
[2025-01-19 19:25] LABS: Alanine Aminotransferase 111 U/L (10-49); Albumin, Serum 4.8 gm/dL (3.5-5.0); Albumin/Globulin Ratio 1.7 (1.2-2.2); Alkaline Phosphatase 73 U/L (46-116); Anion Gap 15 (7-16); Aspartate Amino Transferase 118 U/L (0-34); BUN/Creatinine Ratio 5 Ratio (12-20); Bilirubin,Direct 0.2 mg/dL (0.0-0.3); Bilirubin,Total 0.6 mg/dL (0.3-1.2); Blood Urea Nitrogen 6 mg/dL (9-23); Calcium 9.5 mg/dL (8.3-10.6); Calcium (Corrected) 9.5 mg/dL (8.5-10.1); Carbon Dioxide 20.1 mMol/L (20.0-31.0); Chloride 105 mMol/L (98-107); Creatine Kinase 346 U/L (34-171); Creatinine (Component) 1.2 mg/dL (0.6-1.3); Estimated Creatinine Clearance 145.4 mL/min (>60); Globulin 2.8 gm/dL (2.3-3.5); Glucose 109 mg/dL (74-106); Magnesium 2.1 mg/dL (1.6-2.6); Osmolality,Calculated 278 (275-295); Potassium 3.9 mMol/L (3.4-5.1); Sodium 140 mMol/L (136-145); Thyroid Stimulating Hormone 1.05 uIU/mL (0.55-4.78); Total Protein 7.6 gm/dL (5.7-8.2); Troponin I < 0.002 ng/mL (0.0-0.045); eGFR > 60 See Note
[2025-01-19 19:36] LABS: D-Dimer < 250 ng/mL (<600)
[2025-01-19 19:47] VITALS: BP 125/81; PULSE 117; RESP 17; O2SAT 96
== END 2025-01-19 19:55 ==
PROVIDERS: Emergency Provider Emergency Medicine
DX: Z02.89 Encounter for other administrative examinations (principal); R00.0 Tachycardia, unspecified
CPT/HCPCS: 36415; 80053; 80307; 82248; 82550; 83735; 83880; 84443; 84484; 85025; 85379; 93005; 99283; A9270